=== PATIENT | male | born 1965 | race Caucasian/White ===

== ENCOUNTER 2022-05-06 15:39 | Emergency (ER) | payer BC ==
[2022-05-06 16:22] LABS: #Eosinphils 0.1 thou/uL (0.0-0.7); #Lymphocytes 2.3 thou/uL (1.20-3.40); #Monocytes 0.6 thou/uL (0.11-0.59); #Neutrophils 4.7 thou/uL (1.40-6.50); %Basophils 0.6 % (0.0-1.0); %Eosinophils 1.2 % (0.0-10.0); %Lymphocytes 30.3 % (21.0-51.0); %Monocytes 7.4 % (0.0-10.0); %Neutrophils 60.5 % (42.0-75.0); Hemoglobin 15.3 g/dL (14.0-18.0); Mean Corpuscular Hemoglobin 34.2 pg (27.0-31.0); Mean Platelet Volume 6.6 fL (7.4-10.4); Platelet Count 230 10x3/uL (130-400); RBC Distribution Width 11.1 % (11.5-14.5); Red Blood Cell (RBC) Count 4.46 mill/uL (4.70-6.10); White Blood Cell (WBC) Count 7.7 10x3/uL (4.8-10.8)
[2022-05-06 16:38] LABS: Bilirubin Negative (Negative); Blood, Urine Negative (Negative); Clarity Clear (Clear); Glucose, Urine (Dipstick) Normal (Negative); Ketone, Urine Negative (Negative); Leukocyte Negative Leu/uL (Negative); Nitrite Negative (Negative); Protein, Urine (Dipstick) Negative (Neg-Trace); Specific Gravity, Urine 1.009 (1.002-1.036); Urobilinogen Normal mg/dL (Less than 2)
[2022-05-06] MEDS ORDERED: Ketorolac Tromethamine 30 MG/ML VIAL ONE (16:43)
[2022-05-06 16:52] LABS: ALT (SGPT) 48 U/L (8-55); AST (SGOT) 41 U/L (5-34); Albumin 4.2 g/dL (3.5-5.0); Alkaline Phosphatase 80 U/L (40-110); Anion Gap 13 mmol/L (10-20); BUN (Urea Nitrogen) 9 mg/dL (8.4-25.7); Bilirubin, Total 0.8 mg/dL (0.2-1.2); Calc. Creatinine Clearance 0 mL/min (70-130); Calcium 9.6 mg/dL (7.8-10.44); Carbon Dioxide 23 mmol/L (22-29); Chloride 105 mmol/L (98-107); Estimated GFR 98; Globulin 3.3 g/dL (2.4-3.5); Glucose 105 mg/dL (70-105); Lipase 14 U/L (8-78); Potassium 3.9 mmol/L (3.5-5.1); Protein, Total 7.5 g/dL (6.0-8.3); Sodium 137 mmol/L (136-145)
== END 2022-05-06 17:22 | disposition home or self-care (01) ==
LOC: ERS 15:39
DX: K57.32 Diverticulitis of large intestine without perforation or abscess without bleeding (principal); N32.9 Bladder disorder, unspecified; Z87.891 Personal history of nicotine dependence
CPT/HCPCS: 74177; 80053; 81003; 83690; 85025; 93005; 96374; J1885

== ENCOUNTER 2023-01-21 14:20 | Outpatient (CLI) | payer BC ==
[~2023-01-21 14:20] MED LIST: Magnevist 469MG/ML 20 ML VIAL ONE
== END 2023-01-21 14:21 | disposition home or self-care (01) ==
LOC: BICMRI 14:20
PROVIDERS: ATTEND Family Medicine
DX: M54.9 Dorsalgia, unspecified (principal); M79.671 Pain in right foot; R20.0 Anesthesia of skin; M51.26 Other intervertebral disc displacement, lumbar region; M51.17 Intervertebral disc disorders with radiculopathy, lumbosacral region; M51.36 Other intervertebral disc degeneration, lumbar region
CPT/HCPCS: 72158; A9579

== ENCOUNTER 2024-01-06 18:30 | Emergency (ER) | payer BC ==
[2024-01-06 20:47] LABS: #Basophils Less than 0.03 10x3/uL (0.0-0.2); %Basophils 0.4 % (0.0-1.0); %Eosinophils 2.8 % (0.0-10.0); %Lymphocytes 35.6 % (21.0-51.0); %Monocytes 15.5 % (0.0-10.0); %Neutrophils 45.3 % (42.0-75.0); Hematocrit 45.8 % (42.0-52.0); Mean Corpuscular HGB CONC 34.9 g/dL (32.0-36.0); Mean Corpuscular Hemoglobin 34.1 pg (27.0-31.0); Mean Corpuscular Volume 97.7 fL (78.0-98.0); Platelet Count 163 10x3/uL (130-400); RBC Distribution Width 12.6 % (11.5-14.5); Red Blood Cell (RBC) Count 4.69 mill/uL (4.70-6.10)
[2024-01-06 21:02] LABS: ALT (SGPT) 67 U/L (8-55); AST (SGOT) 47 U/L (5-34); Albumin 3.4 g/dL (3.5-5.0); Alkaline Phosphatase 78 U/L (40-110); Anion Gap 13 mmol/L (10-20); BUN (Urea Nitrogen) 8 mg/dL (8.4-25.7); Bilirubin, Total 0.9 mg/dL (0.2-1.2); Calc. Creatinine Clearance 0 mL/min (70-130); Calcium 9.1 mg/dL (7.8-10.44); Carbon Dioxide 26 mmol/L (22-29); Chloride 106 mmol/L (98-107); Estimated GFR 103; Globulin 3.2 g/dL (2.4-3.5); Glucose 99 mg/dL (70-105); Lipase 16 U/L (8-78); Potassium 4.1 mmol/L (3.5-5.1); Protein, Total 6.6 g/dL (6.0-8.3); Sodium 141 mmol/L (136-145)
[2024-01-06] MEDS ORDERED: Morphine 4 MG/ML VIAL ONE (21:33)
[2024-01-06] MEDS ORDERED: Dicyclomine 20 MG TAB ONE (21:33)
[2024-01-06] MEDS ORDERED: Ondansetron PF 4 MG/2 ML Vial ONE (21:34)
== END 2024-01-06 22:38 | disposition home or self-care (01) ==
LOC: ERS 18:30
DX: K52.9 Noninfective gastroenteritis and colitis, unspecified (principal); R10.30 Lower abdominal pain, unspecified; Z55.6 Problems related to health literacy; Z87.891 Personal history of nicotine dependence
CPT/HCPCS: 36415; 80053; 83690; 85025; 96374; 96375; J2272; J2405